=== PATIENT | female | born 1950 | race Caucasian/White ===

== ENCOUNTER 2019-03-10 06:44 | Observation (INO) ==
[2019-03-10 07:57] LABS: URINE SOURCE CLEAN CATCH
[2019-03-10 07:59] LABS: BASO# 0.05 X1000 (0.0-0.2); BASO% 0.5 % (0.0-0.8); EOS# 0.52 X1000 (0.0-0.7); IMM GRAN# 0.03 X1000 (0.0-0.04); IMM GRAN% 0.3 % (0.0-0.5); LYMPH# 2.32 X1000 (1.2-3.4); LYMPH% 22.5 % (20.5-51.1); MCH 29.8 PG (27-31); MCHC 30.6 g/dL (33-37); MCV 97.6 FL (81-99); MONO# 0.95 X1000 (0.11-0.59); MONO% 9.2 % (1.7-9.3); MPV 10.6 FL (7.4-10.4); NEUT# 6.46 X1000 (1.4-6.5); NEUT% 62.5 % (42.2-75.2); PLT 312 X1000 (130-400); RBC 3.69 XMIL (4.2-5.4); RDW 13.3 % (11.5-14.5); WBC 10.33 X1000 (4.8-10.8)
[2019-03-10 08:01] LABS: BILIRUBIN URINE NEGATIVE (NEGATIVE); BLOOD URINE NEGATIVE (NEGATIVE); COLOR YELLOW; GLUCOSE URINE NEGATIVE (NEGATIVE); KETONE URINE NEGATIVE (NEGATIVE); LEUKOCYTES URINE LARGE (NEGATIVE); NITRITE URINE NEGATIVE (NEGATIVE); PH URINE 5.5; PROTEIN URINE NEGATIVE (NEGATIVE); SP GRAVITY URINE 1.025; TURBIDITY URINE CLEAR (CLEAR); UROBILINOGEN URINE 2 mg/dL (NORMAL)
[2019-03-10 08:02] LABS: UR EPITHELIAL CELLS <10 /HPF (<10); URINE BACTERIA NEGATIVE /HPF; URINE RBC <10 /HPF (<10); URINE WBC 20-40 /HPF (<10)
[2019-03-10 08:12] LABS: INR 0.88; PROTIME 12.4 Seconds (11.0-16.0); PTT 27.5 Seconds (22.3-41.8)
--- NOTE | 2019-03-10 08:16 | EKG Report ---
Test Performed on : 03/10/2019 07:00:14 AM Test Reason : chest pain Blood Pressure : / mmHG Vent. Rate : 077 BPM Atrial Rate : 064 BPM P-R Int : 166 ms QRS Dur : 090 ms QT Int : 490 ms P-R-T Axes : 102 039 032 degrees QTc Int : 554 ms Sinus rhythm. with occasional and consecutive premature ventricular complexes. and premature atrial c omplexes. Prolonged QT Abnormal ECG No previous ECGs available Unconfirmed Result
[2019-03-10 08:29] LABS: ALBUMIN 4.1 g/dL (3.5-5.0); CALCIUM 8.4 mg/dL (8.8-10.2); CREATININE 1.1 mg/dL (0.5-0.9); POTASSIUM 3.8 mmol/L (3.5-5.1); TOTAL BILIRUBIN 0.5 mg/dL (0.20-1.00); TOTAL PROTEIN 7.2 g/dL (6.3-8.3)
--- NOTE | 2019-03-10 09:08 | Diag Imaging Result Doc PS360 ---
EXAM: CHEST-1 VIEW HISTORY: chest pain TECHNIQUE: Single view COMPARISON: None. FINDINGS: The lungs are well expanded. The heart is not enlarged. The vessels are not distended. There are no infiltrates. No effusion identified. IMPRESSION: Negative exam. Electronically signed by Vince Hodges 03/10/2019 9:06 AM
--- NOTE | 2019-03-10 09:18 | PROVIDER DOCUMENTATION ---
HPI-Chest Pain - General Chief Complaint: Chest Pain Stated Complaint: CHEST PAIN Time Seen by Provider: 03/10/19 07:14 Source: patient Allergies/Adverse Reactions: Patient Allergies Allergy/AdvReac Type Severity Reaction Status Date / Time No Known Allergies Allergy Verified 03/10/19 07:28 Home Medications: Home Medication List Medication Instructions Recorded Confirmed Last Taken Type Aspirin [Aspir-Low] 81 mg PO DAILY 03/10/19 03/10/19 Unknown History Bisoprolol/Hctz [Ziac 10/6.25 mg] 1 tab PO DAILY 03/10/19 03/10/19 Unknown History Calcium Carb/Vitamin D3/Vit K1 1 tab PO DAILY 03/10/19 03/10/19 Unknown History [Citracal Soft Chew] Clonazepam 2 cap PO BID 03/10/19 03/10/19 Unknown History Cyanocobalamin (Vitamin B-12) 1 tab PO DAILY 03/10/19 03/10/19 Unknown History [Vitamin B12] Diphenhydramine [Benadryl] 25 mg PO HS 03/10/19 03/10/19 Unknown History Escitalopram [Lexapro] 10 mg PO DAILY 03/10/19 03/10/19 Unknown History Estrogens, Conjugated [Premarin] 0.3 mg PO DAILY 03/10/19 03/10/19 Unknown History Fluticasone 50 Mcg Nasal [place] 2 squirt INTRANASAL DAILY 03/10/19 03/10/19 Unknown History [Flonase] Loratadine [Claritin] 10 mg PO DAILY 03/10/19 03/10/19 Unknown History Losartan/Hydrochlorothiazide 1 tab .ROUTE DAILY 03/10/19 03/10/19 Unknown History [Losartan-Hctz 50-12.5 mg Tab] Multivitamins/Minerals [Centrum 1 tab PO DAILY 03/10/19 03/10/19 Unknown History Silver] Naproxen 500 mg PO BID 03/10/19 03/10/19 Unknown History Nifedipine [Nifedipine ER] 30 mg PO BID 03/10/19 03/10/19 Unknown History Omeprazole 40 mg PO DAILY 03/10/19 03/10/19 Unknown History Tizanidine [Zanaflex] 4 mg PO HS 03/10/19 03/10/19 Unknown History - History of Present Illness-CP Nature of Presenting Problem: 68 y/o WF c/o chest pain that woke her up at 5am today saying it radiates across her chest from rt to Lt and into her Lt arm. She admits some SOB but no N/V. Location: reports: central (across chest) Chest Pain Radiation: reports: shoulders (lt shoulder) Quality of Pain: reports: aching Severity in ED: mild Onset/Duration: 4-6 hours ago Context/Activities at Onset: reports: sleep Modifying Factors: improves with: nothing Associated Symptoms: reports: nausea, shortness of breath Nitro Today/Relief: no nitro taken today Aspirin Treatment Today: 325 mg x 1, provided at home Prior Chest Pain/Cardiac Workup: reports: no prior chest pain, no prior cardiac workup Similar Symptoms Previously?: No Recently Seen Here or By Another Healthcare Provider: No Review of Systems - Adult - REVIEW OF SYSTEMS - ADULT Constitutional: reports: no symptoms reported, see HPI Eyes: reports: no symptoms reported, see HPI Ears, Nose, Mouth & Throat: reports: no symptoms reported, see HPI Cardiovascular: reports: see HPI, chest pain Respiratory: reports: see HPI, shortness of breath Gastrointestinal: reports: no symptoms reported, see HPI Genitourinary: reports: no symptoms reported, see HPI Musculoskeletal: reports: no symptoms reported, see HPI Integumentary: reports: no symptoms reported, see HPI Neurological: reports: no symptoms reported, see HPI Psychiatric: reports: no symptoms reported, see HPI Endocrine: reports: no symptoms reported, see HPI Hematologic/Lymphatic: reports: no symptoms reported, see HPI Allergic/Immunologic: reports: no symptoms reported, see HPI All Other Systems: Reviewed and Negative Past History - Adult - PAST MEDICAL HISTORY-ADULT Review of Records: reports: Nursing Assessment Review, Medications Reviewed, Social history reviewed & non-contributory. Physical Exam-General - PHYSICAL EXAM-ADULT Initial Vital Signs Reviewed: Yes - CONSTITUTIONAL General Appearance: appears well, alert, no apparent distress - EYES Eyes: PERRL/EOMI - HEAD, EARS, NOSE, MOUTH & THROAT HENMT: normocephalic/atraumatic, moist mucous membranes - NECK Neck: non-tender, full range of motion, supple, normal inspection - RESPIRATORY Respiratory: chest non-tender, lungs clear, normal breath sounds, no pleuratic chest pain, no respiratory distress, no accessory muscle use - CARDIOVASCULAR Cardiovascular: normal peripheral pulses, regular rate, rhythm, no edema, no gallop, no JVD, no murmur - GASTROINTESTINAL (ABDOMEN) Abdominal Exam: normal bowel sounds, non tender, soft, no organomegaly, no pulsatile mass - LYMPHATIC Lymphatic: no adenopathy - MUSCULOSKELETAL Back Exam: normal inspection, no CVA tenderness, no vertebral tenderness Extremity: normal range of motion, non-tender, normal gait, normal inspection, no pedal edema, no calf tenderness, normal capillary refill - SKIN Integumentary: normal color, normal turgor - NEUROLOGIC 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: 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-XII nml as tested, grossly normal, no motor/sensory deficits - PSYCHIATRIC Psych/Mental Status: normal mood/affect, normal thought content, normal thought process, oriented x 3 - HEART Score HEART Score: History: Moderately Suspicious HEART Score: ECG: Non-Specific Repolarization Disturbance/LBBB/PM HEART Score: Age: > or = 65 Years HEART Score: Risk Factors for Atherosclerotic Disease: 1 or 2 Risk Factors HEART Score: Troponin: < or = Normal Limit Total HEART Score:: 5 Progress - PLAN OF CARE/RESULTS Progress/Plan/Lab Results: Vital Signs - 8 hr 03/10/19 06:48 Temperature 97.8 F Pulse Rate 59 L Respiratory Rate 20 Blood Pressure 168/70 O2 Sat by Pulse Oximetry 97 Laboratory Results - last 24 hr 03/10/19 03/10/19 03/10/19 07:40 07:45 07:45 WBC 10.33 RBC 3.69 L Hgb 11.0 L Hct 36.0 L MCV 97.6 MCH 29.8 MCHC 30.6 L RDW Std Deviation 13.3 Plt Count 312 MPV 10.6 H Immature Gran % (Auto) 0.3 Neut % (Auto) 62.5 Lymph % (Auto) 22.5 [place] % (Auto) 9.2 Eos % (Auto) 5.0 Baso % (Auto) 0.5 Immature Gran # (Auto) 0.03 Neut # (Auto) 6.46 Lymph # (Auto) 2.32 [place] # (Auto) 0.95 H Eos # (Auto) 0.52 Baso # (Auto) 0.05 PT INR PTT (Actin FS) Sodium Potassium Chloride Carbon Dioxide Anion Gap BUN Creatinine Estimated GFR/1.73 m2 BUN/Creatinine Ratio Glucose Calculated Osmolality Calcium Total Bilirubin AST ALT Alkaline Phosphatase Troponin T < 0.010 Ajf-W-Xtyjeayfkah Pept Total Protein Albumin Globulin Albumin/Globulin Ratio Urine Source CLEAN CATCH Urine Color YELLOW Urine Turbidity CLEAR Urine pH 5.5 Ur Specific [place] 1.025 Urine Protein NEGATIVE Ur Glucose (Stick) NEGATIVE Ur Ketones (Stick) NEGATIVE Urine Blood NEGATIVE Urine Nitrite NEGATIVE Urine Bilirubin NEGATIVE Urobilinogen Dipstick 2 A Urine Leukocytes LARGE A Urine WBC (Auto) 20-40 A Urine RBC (Auto) <10 U Epithel Cells (Auto) <10 Urine Bacteria (Auto) NEGATIVE 03/10/19 03/10/19 03/10/19 07:45 07:45 07:45 WBC RBC Hgb Hct MCV MCH MCHC RDW Std Deviation Plt Count MPV Immature Gran % (Auto) Neut % (Auto) Lymph % (Auto) [place] % (Auto) Eos % (Auto) Baso % (Auto) Immature Gran # (Auto) Neut # (Auto) Lymph # (Auto) [place] # (Auto) Eos # (Auto) Baso # (Auto) PT 12.4 INR 0.88 PTT (Actin FS) 27.5 Sodium 143 Potassium 3.8 Chloride 104 Carbon Dioxide 24 L Anion Gap 15 BUN 32 H Creatinine 1.1 H Estimated GFR/1.73 m2 49 BUN/Creatinine Ratio 29 Glucose 115 H Calculated Osmolality 293 Calcium 8.4 L Total Bilirubin 0.50 AST 19 ALT 11 Alkaline Phosphatase 103 Troponin T Fra-M-Eyemfsozyde Pept 954 H Total Protein 7.2 Albumin 4.1 Globulin 3.0 Albumin/Globulin Ratio 1.0 Urine Source Urine Color Urine Turbidity Urine pH Ur Specific [place] Urine Protein Ur Glucose (Stick) Ur Ketones (Stick) Urine Blood Urine Nitrite Urine Bilirubin Urobilinogen Dipstick Urine Leukocytes Urine WBC (Auto) Urine RBC (Auto) U Epithel Cells (Auto) Urine Bacteria (Auto) Orders Category Date Time Status Nursing- Obtain EKG ONCE Care 03/10/19 07:14 Active CHEST-1 VIEW [RAD] Stat Exams 03/10/19 07:14 Completed CBC WITH ELECTRONIC DIFF [HEME] Stat Lab 03/10/19 07:45 Completed COMPREHENSIVE METABOLIC PANEL [CHEM] Stat Lab 03/10/19 07:45 Completed PRO B-NATRIURETIC PEPTIDE Stat Lab 03/10/19 07:45 Completed PROTIME WITH INR [COAG] Stat Lab 03/10/19 07:45 Completed PTT [COAG] Stat Lab 03/10/19 07:45 Completed TROPONIN T Stat Lab 03/10/19 07:45 Completed URINALYSIS W/POSS RFLX CULT [URINALYSIS] Stat Lab 03/10/19 07:40 Completed URINE CULTURE [RM] Routine Lab 03/10/19 08:32 Ordered Morphine Med 03/10/19 09:31 Once 2 mg IV NOW ONE Ondansetron [Zofran] Med 03/10/19 09:31 Once 4 mg IV NOW ONE EKG [EKG] Stat Ther 03/10/19 07:14 Draft Result Diagrams: 03/10/19 07:45 03/10/19 07:45 - EKG 1 Time of EKG reading by physician:: 07:00 EKG Read and Signed by:: Clifford Sorto EKG Interpretation (*Must complete 3 of following elements*): Abnormal Rate: 77 Rhythm: SR with PVC and PAC [place]: normal QRS: normal [place] Interval: normal ST Wave: normal - XRAY 1 XRAY Study: Chest Impression: Normal, See EMR Report ([facility] - [address] [place] [address] [place], [place] [id number] [facility] - [address] [place] [address] Department of Imaging Patient: DANGELO LONGO Date: 03/10/19#: [id number] : 1950DM Status: REG ERAcct#: [id number] Age/Sex: 68/FRoom/Bed: Loc: P.ED Ordering Physician: Clifford Sorto MD Family Physician: Leodan Kahn MD Reason for Procedure: chest pain Signed EXAM: CHEST-1 VIEW HISTORY: chest pain TECHNIQUE: Single view COMPARISON: None. FINDINGS: The lungs are well expanded. The heart is not enlarged. The vessels are not distended. There are no infiltrates. No effusion identified. IMPRESSION: Negative exam. Electronically signed by Vince Hodges 03/10/2019 9:06 AM 03/10/19905 Interpreting Physician: Vince Hodges MD Dictated Date/Time: 03/10/19905 cc: Clifford Sorto MD; Leodan Kahn MD) - CONSULTS/PCP/HOSPITALIST Notification #1 *Consult/PCP/Hospitalist*: Dr Steen Time Discussed: 09:32 Consult Disposition: Will see in ED, Admit Departure - Departure Date of Disposition Decision: 03/10/19 Time of Disposition Decision: 09:17 DIAGNOSIS: Renal insufficiency, Chest pain, CHF (congestive heart failure) Disposition: ADMITTED INPATIENT 09 Certified Medical Emergency: Emergent Condition: Fair Referrals and Follow-Ups: Leodan Kanh MD [Primary Care Provider] - - Critical Care Note This patient required my direct & personal management of CC.: No Attestation - Physician/ SYLVIA Attestation Patient care was provided by Advanced Practice Provider:: No The physician spent face to face time with patient:: Yes Advanced Practice Provider documentation review:: Supervising physician onsite and consulted in the evaluation and care of this patient. The physician did have a face to face encounter with the patient.
[2019-03-10] MEDS ORDERED: MORPHINE IV ONE (09:31)
[2019-03-10] MEDS ORDERED: ZOFRAN IV ONE (09:31)
[2019-03-10] MEDS ORDERED: CENTRUM SILVER PO SCH (10:45)
[2019-03-10] MEDS ORDERED: PREMARIN PO SCH (10:45)
[2019-03-10] MEDS ORDERED: ASPIRIN EC PO SCH (10:45)
[2019-03-10] MEDS ORDERED: THERA M PLUS PO SCH (10:58)
[2019-03-10] MEDS: CALTRATE 600 + D PO SCH (11:27)
[2019-03-10] MEDS: LEXAPRO PO SCH (11:28)
[2019-03-10] MEDS: VITAMIN B-12 PO SCH (11:29)
[2019-03-10] MEDS: ADALAT CC PO SCH ×2 (11:56→21:21)
[2019-03-10] MEDS: PRILOSEC PO SCH (11:57)
[2019-03-10] MEDS: COZAAR PO SCH (11:57)
[2019-03-10] MEDS: CLARITIN PO SCH (11:57)
[2019-03-10] MEDS: NAPROSYN PO SCH ×2 (11:58→21:21)
[2019-03-10] MEDS: HYDROCHLOROTHIAZIDE PO SCH (11:58)
[2019-03-10] MEDS: FLONASE NAS SCH (11:58)
[2019-03-10] MEDS ORDERED: TYLENOL PO PRN (12:31)
[2019-03-10] MEDS ORDERED: ZOFRAN IV PRN (12:31)
--- NOTE | 2019-03-10 12:56 | EKG Report ---
Test Performed on : 03/10/2019 12:50:39 PM Test Reason : CP Blood Pressure : / mmHG Vent. Rate : 054 BPM Atrial Rate : 054 BPM P-R Int : 230 ms QRS Dur : 084 ms QT Int : 488 ms P-R-T Axes : 063 057 052 degrees QTc Int : 462 ms Sinus bradycardia. with 1st degree AV block. Low voltage QRS Borderline ECG When compared with ECG of 10-MAR-2019 07:00, (Unconfirmed) premature ventricular complexes. are no longer present premature atrial complexes. are no longer present ID interval has increased QT has shortened Confirmed by Rl Ruby MD ([id number]) on 03/12/2019 7:30:13 AM
[2019-03-10] MEDS ORDERED: LOVENOX SUBQ SCH (13:00)
[2019-03-10 13:46] LABS: AGAP 13; BUN 30 mg/dL (8-22); CALCIUM 8.3 mg/dL (8.8-10.2); CHLORIDE 104 mmol/L (98-107); CK PROFILE 102 U/L (24-173); COSMO 287; CREATININE 0.9 mg/dL (0.5-0.9); ESTIMATED GFR > 60; GLUCOSE 97 mg/dL (70-104); POTASSIUM 4.1 mmol/L (3.5-5.1); SODIUM 141 mmol/L (136-145); TCO2 25 mmol/L (25-35)
[2019-03-10] MEDS ORDERED: PNEUMOVAX 23 IM ONE (15:45)
[2019-03-10 19:12] LABS: URINE SOURCE CLEAN CATCH
[2019-03-10 19:15] LABS: BILIRUBIN URINE NEGATIVE (NEGATIVE); BLOOD URINE NEGATIVE (NEGATIVE); COLOR YELLOW; GLUCOSE URINE NEGATIVE (NEGATIVE); KETONE URINE NEGATIVE (NEGATIVE); LEUKOCYTES URINE LARGE (NEGATIVE); NITRITE URINE NEGATIVE (NEGATIVE); PH URINE 5.5; PROTEIN URINE TRACE mg/dL (NEGATIVE); SP GRAVITY URINE 1.023; TURBIDITY URINE CLEAR (CLEAR); UROBILINOGEN URINE 2 mg/dL (NORMAL)
[2019-03-10 19:16] LABS: UR EPITHELIAL CELLS <10 /HPF (<10); URINE BACTERIA 1+ /HPF; URINE RBC <10 /HPF (<10); URINE WBC 20-40 /HPF (<10)
--- NOTE | 2019-03-10 20:23 | HISTORY AND PHYSICAL ---
PRIMARY CARE PHYSICIAN: Dr. Leodan Kahn. CHIEF COMPLAINT: Chest pain. HISTORY OF PRESENTING ILLNESS: This is a 68-year-old, female, who presents to [facility], after she was awakened around 5 a.m. with substernal chest pain. Initially, it went on to the right side of her chest, but then went across to the left side, and radiated through to her shoulder blades and down her left arm. Denied any shortness of breath, nausea, diaphoresis. Her heart score was 5. Workup showed first set of cardiac enzymes were negative. EKG showed sinus rhythm with occasional and consecutive PVCs and premature atrial complexes at 77, but she states that she had a stress test several years ago that was negative, but none since then. So, she will be admitted for further evaluation and treatment. PAST MEDICAL HISTORY: GERD, hypertension, obstructive sleep apnea and wears a CPAP, and arthritis. PAST SURGICAL HISTORY: Cholecystectomy, hysterectomy, and gastric bypass. FAMILY HISTORY: Reviewed and noncontributory. SOCIAL HISTORY: She currently lives with family. Denies any tobacco, alcohol, or illicit drug use. ALLERGIES: She has no known drug allergies. HOME MEDICATIONS: She takes losartan/hydrochlorothiazide 50/12.5 one p.o. daily. We will hold her bisoprolol/hydrochlorothiazide 10/6.25 one p.o. daily. Continue the following: Aspirin 81 mg p.o. daily, Citracal Soft Chew 1 tablet p.o. daily, clonazepam 1 mg 2 capsules p.o. b.i.d., vitamin B12, 2500 mcg 1 p.o. daily, Benadryl 25 mg p.o. at bedtime, Lexapro 10 mg p.o. daily, Premarin 0.3 mg p.o. daily, Flonase 2 sprays nasally daily, Claritin 10 mg p.o. daily, multivitamin p.o. daily, naproxen 500 mg p.o. b.i.d., nifedipine 30 mg p.o. b.i.d., omeprazole 40 mg p.o. daily, and Zanaflex 4 mg p.o. at bedtime. LABORATORY AND DIAGNOSTIC DATA: White blood cell count of 10.33, hemoglobin 11, hematocrit 36, platelets 312,000. PT and INR of 12.4 and 0.88. Sodium 143, potassium 3.8, chloride 104, CO2 of 24, BUN of 32, creatinine 1.1, glucose 115. Cardiac enzyme was negative. ProBNP of 954. Urinalysis with negative nitrites, large leukocytes, but negative bacteria. Chest x-ray showed a negative exam. EKG showed sinus rhythm with occasional and consecutive PVCs and PACs at 77. REVIEW OF SYSTEMS: She denied any fever, chills, blurred vision, dizziness. She was positive for chest pain that radiated through to her shoulder blade, down to her left arm, and up in the left side of her neck. Denied any shortness of breath, cough, abdominal pain, nausea, vomiting, constipation, diarrhea, burning or hurting with urination. PHYSICAL EXAMINATION: VITAL SIGNS: On arrival, she had a temperature of 97.8 degrees, pulse 59, respirations 20, blood pressure 168/70, saturating 97% on room air. Heart rate did go down about 2 hours after arriving to 54. GENERAL: This is a 68-year-old, female, who is lying in the bed and answers questions appropriately. HEENT: Normocephalic, atraumatic. Normal ENT inspection. Oropharynx and nares are clear. EYES: Pupils are equal, round, reactive to light and accommodation. Extraocular movements are intact. NECK: Normal inspection. Normal range of motion. LUNGS: Clear to auscultation bilaterally with equal lung expansion and chest wall movement. HEART: Regular rate and rhythm. No murmurs, rubs, or gallops. ABDOMEN: Soft, nontender, nondistended. Bowel sounds are present x4 quadrants. MUSCULOSKELETAL: She has 5/5 strength x4 extremities. NEUROLOGICAL: Cranial nerves 2-12 appear grossly intact. ASSESSMENT: 1. Chest pain. 2. Bradycardia. 3. Hypertension, history of. 4. Gastroesophageal reflux disease. PLAN: She will be admitted to the medical unit, placed on telemetry, O2 per protocol. Will place her on a healthy heart diet now, NPO after midnight for a myocardial perfusion scan in the a.m. We will complete her serial cardiac enzymes q.8 x3. We will check a lipid profile in the a.m. We will continue her home medications as previously identified. We will do Lovenox 40 mg subcutaneous q.24 for DVT prophylaxis. Urine culture is pending. We will recheck CBC and BMP in the a.m. Further orders after seen by attending. Dictated by GARETH Vigil for Lucian Steen MD cc: GARETH Vigil MD Rodney W. Harney, MD
[2019-03-10] MEDS ORDERED: BENADRYL PO SCH (21:00)
[2019-03-10] MEDS ORDERED: ZANAFLEX PO SCH (21:00)
[2019-03-10 21:07] LABS: CK INDEX 4.4 (0.0-2.5); CK-MB 8.12 ng/mL (0.0-5.0)
[2019-03-10] MEDS: KLONOPIN PO SCH (21:21)
[2019-03-11 07:04] LABS: BASO# 0.04 X1000 (0.0-0.2); BASO% 0.5 % (0.0-0.8); EOS# 0.45 X1000 (0.0-0.7); EOS% 5.8 % (0.0-10.0); HEMATOCRIT 32.1 % (37.0-47.0); HEMOGLOBIN 9.6 g/dL (12.0-16.0); IMM GRAN# 0.01 X1000 (0.0-0.04); IMM GRAN% 0.1 % (0.0-0.5); LYMPH# 1.92 X1000 (1.2-3.4); LYMPH% 24.6 % (20.5-51.1); MCH 29.5 PG (27-31); MCHC 29.9 g/dL (33-37); MCV 98.8 FL (81-99); MONO# 0.66 X1000 (0.11-0.59); MONO% 8.5 % (1.7-9.3); NEUT# 4.71 X1000 (1.4-6.5); NEUT% 60.5 % (42.2-75.2); PLT 270 X1000 (130-400); RBC 3.25 XMIL (4.2-5.4); RDW 13.2 % (11.5-14.5); WBC 7.79 X1000 (4.8-10.8)
[2019-03-11] MEDS: PRILOSEC PO SCH (07:29)
[2019-03-11 07:33] LABS: CK-MB 7.85 ng/mL (0.0-5.0)
[2019-03-11] MEDS ORDERED: ASPIRIN PO ONE (07:43)
[2019-03-11] MEDS ORDERED: LOVENOX 1 MG/KG SUBQ ONE (07:43)
[2019-03-11] MEDS ORDERED: LOVENOX SUBQ ONE (08:15)
--- NOTE | 2019-03-11 08:32 | EKG Report ---
Test Performed on : 03/11/2019 08:25:45 AM Test Reason : ELEV TROPONIN Blood Pressure : / mmHG Vent. Rate : 058 BPM Atrial Rate : 058 BPM P-R Int : 214 ms QRS Dur : 086 ms QT Int : 478 ms P-R-T Axes : 039 038 035 degrees QTc Int : 469 ms Sinus bradycardia. with 1st degree AV block. Low voltage QRS Borderline ECG When compared with ECG of 10-MAR-2019 12:50, (Unconfirmed) No significant change was found Confirmed by Rl Ruby MD ([id number]) on 03/12/2019 7:29:56 AM
[2019-03-11] MEDS: LEXAPRO PO SCH (10:36)
[2019-03-11] MEDS: KLONOPIN PO SCH (10:36)
[2019-03-11] MEDS: VITAMIN B-12 PO SCH (10:37)
[2019-03-11] MEDS: ADALAT CC PO SCH (10:37)
[2019-03-11] MEDS: HYDROCHLOROTHIAZIDE PO SCH (10:37)
[2019-03-11] MEDS: CALTRATE 600 + D PO SCH (10:38)
[2019-03-11] MEDS: FLONASE NAS SCH (10:38)
[2019-03-11] MEDS: CLARITIN PO SCH (10:38)
[2019-03-11] MEDS: COZAAR PO SCH (10:38)
[2019-03-11 11:26] VITALS: BP 155/67
[2019-03-11] MEDS ORDERED: LOVENOX SUBQ SCH (20:00)
[2019-03-11] MEDS ORDERED: LIPITOR PO SCH (21:00)
[2019-03-12] MEDS ORDERED: ASPIRIN EC PO SCH (09:00)
--- NOTE | 2019-03-18 23:58 | DISCHARGE SUMMARY ---
ADMISSION DATE: 03/10/2019 DISCHARGE DATE: 03/11/2019 DISCHARGE DIAGNOSES: Acute myocardial infarction. PROCEDURES: None. BRIEF HOSPITAL COURSE: The patient is a 68-year-old female who was admitted to the hospital and discharged by Dr. Steen. She was not seen, nor examined by myself. She apparently was admitted with chest pain, ruled in for an acute IN and was transferred to [place]. Further discharge planning per [place] after her heart catheterization. cc: Sridhar Garcia MD
== END 2019-03-11 13:25 | disposition short-term general hospital (02) ==
LOC: P.ED 06:44 → P.MEDSURG 06:44 → SUATTDRO 11:57
PROVIDERS: ATTEND Family Medicine

== ENCOUNTER 2019-06-09 11:31 | Observation (INO) ==
[2019-06-09 12:01] LABS: BASO# 0.04 X1000 (0.0-0.2); BASO% 0.4 % (0.0-0.8); EOS# 0.29 X1000 (0.0-0.7); EOS% 2.9 % (0.0-10.0); HEMOGLOBIN 10.3 g/dL (12.0-16.0); IMM GRAN# 0.02 X1000 (0.0-0.04); IMM GRAN% 0.2 % (0.0-0.5); LYMPH# 1.45 X1000 (1.2-3.4); LYMPH% 14.5 % (20.5-51.1); MCH 30.1 PG (27-31); MCHC 31.2 g/dL (33-37); MCV 96.5 FL (81-99); MONO# 0.52 X1000 (0.11-0.59); MONO% 5.2 % (1.7-9.3); MPV 10.6 FL (7.4-10.4); NEUT% 76.8 % (42.2-75.2); PLT 371 X1000 (130-400); RBC 3.42 XMIL (4.2-5.4); RDW 12.9 % (11.5-14.5); WBC 10.02 X1000 (4.8-10.8)
--- NOTE | 2019-06-09 12:06 | Diag Imaging Result Doc PS360 ---
EXAM: CHEST-2 VIEWS 06/09/2019 HISTORY: cp TECHNIQUE: PA and lateral chest COMMENT: There is no evidence of acute cardiac or pulmonary disease. Compared to 03/10/2019 there has been no significant change. IMPRESSION: No evidence of acute disease. Electronically signed by Norberto Matthew 06/09/2019 12:04 PM
[2019-06-09 12:20] LABS: INR 0.85
[2019-06-09 12:36] LABS: AGAP 13; ALBUMIN 3.8 g/dL (3.5-5.0); ALKALINE PHOSPHATASE 97 U/L (32-104); BUN 27 mg/dL (8-22); CALCIUM 8.9 mg/dL (8.8-10.2); CHLORIDE 101 mmol/L (98-107); CK PROFILE 96 U/L (24-173); COSMO 288; CREATININE 0.9 mg/dL (0.5-0.9); ESTIMATED GFR > 60; GLUCOSE 133 mg/dL (70-104); GOT 21 U/L (10-30); GPT 13 U/L (10-36); POTASSIUM 3.9 mmol/L (3.5-5.1); SODIUM 141 mmol/L (136-145); TCO2 27 mmol/L (25-35); TOTAL PROTEIN 6.6 g/dL (6.3-8.3)
[2019-06-09 13:01] LABS: PTT < 20.0 Seconds (22.3-41.8)
--- NOTE | 2019-06-09 13:30 | EKG Report ---
Test Performed on : 06/09/2019 11:38:23 AM Test Reason : cp Blood Pressure : / mmHG Vent. Rate : 051 BPM Atrial Rate : 051 BPM P-R Int : 212 ms QRS Dur : 086 ms QT Int : 492 ms P-R-T Axes : 023 008 032 degrees QTc Int : 453 ms Sinus bradycardia. with sinus arrhythmia. with 1st degree AV block. Low voltage QRS Borderline ECG When compared with ECG of 11-MAR-2019 08:25, No significant change was found Unconfirmed Result
--- NOTE | 2019-06-09 13:46 | PROVIDER DOCUMENTATION ---
This chart was entered by Renuka Momin Scribe, acting as scribe for Clifford Sorto MD. HPI-Chest Pain - General Chief Complaint: Chest Pain Stated Complaint: CHEST PAIN Time Seen by Provider: 06/09/19 11:53 Source: patient, family () Allergies/Adverse Reactions: Patient Allergies Allergy/AdvReac Type Severity Reaction Status Date / Time No Known Allergies Allergy Verified 06/09/19 11:38 Home Medications: Home Medication List Medication Instructions Recorded Confirmed Last Taken Type Aspirin [Aspir-Low] 81 mg PO DAILY 03/10/19 06/09/19 Unknown History Escitalopram [Lexapro] 10 mg PO DAILY 03/10/19 06/09/19 Unknown History Naproxen 500 mg PO BID 03/10/19 06/09/19 Unknown History Omeprazole 40 mg PO QAM 03/10/19 06/09/19 Unknown History Tizanidine [Zanaflex] 4 mg PO HS 03/10/19 06/09/19 Unknown History ATORVAstatin [Lipitor] 40 mg PO QHS 04/19/19 06/09/19 Unknown History Amlodipine Besylate 5 mg PO QAM 04/19/19 06/09/19 Unknown History Calcium Phosphate Trib/Vit D3 1 ea PO BID 04/19/19 06/09/19 Unknown History [Caltrate Gummy Bites] Carvedilol [Coreg] 3.125 mg PO BID 04/19/19 06/09/19 Unknown History Clonazepam 2 mg PO HS 04/19/19 06/09/19 Unknown History Clopidogrel Bisulfate [Plavix] 75 mg PO QAM 04/19/19 06/09/19 Unknown History Cyanocobalamin/Cobamamide [B-12 1 ea SUBLINGUAL QAM 04/19/19 06/09/19 Unknown History 5,000 Mcg Sublingual Tab] Diphenhydramine [Benadryl] 25 mg PO QHS 04/19/19 06/09/19 Unknown History Estrogens, Conjugated [Premarin] 0.3 mg PO HS 04/19/19 06/09/19 Unknown History Losartan/Hydrochlorothiazide 1 ea PO QAM 04/19/19 06/09/19 Unknown History [Hyzaar 100-25 Tablet] Mirabegron E.r. [Myrbetriq E.r] 50 mg PO HS 04/19/19 06/09/19 Unknown History Nitroglycerin Sl [Nitroglycerin] 0.4 mg SUBLINGUAL PRN PRN 04/19/19 06/09/19 Unknown History - History of Present Illness-CP Nature of Presenting Problem: 68 yowf presents to the ed with c/o chest pain, dizziness, nausea and sob. pt sts she noted pain last night and took Nitro x1 and eased pain and she went to sleep. pt sts woke this am pain was back with other sx. pt took another Nitro and ASA 325mg and pain has eased again.. pt on exam is nontoxic in appearance and is in no obvious distress on exam Location: reports: central Chest Pain Radiation: reports: no radiation Quality of Pain: reports: burning Severity in ED: moderate Onset/Duration: last night Timing: still present, improving, intermittent Context/Activities at Onset: reports: light activity Modifying Factors: improves with: other (Nitro) Associated Symptoms: reports: dizziness, nausea, shortness of breath. 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 denies: palpitations, syncope Respiratory: denies: cough, shortness of breath, wheezing Gastrointestinal: reports: nausea. denies: abdominal pain, diarrhea, vomiting Genitourinary: reports: no symptoms reported Musculoskeletal: denies: back pain, neck pain Integumentary: reports: no symptoms reported Neurological: reports: no symptoms reported, dizziness/vertigo. denies: headache/migraines, syncope Psychiatric: reports: no symptoms reported Endocrine: reports: no symptoms reported Hematologic/Lymphatic: reports: no symptoms reported Allergic/Immunologic: reports: no symptoms reported All Other Systems: Reviewed and Negative Past History - Adult - PAST MEDICAL HISTORY-ADULT Review of Records: reports: Old Records Reviewed, Nursing Assessment Review, Medications Reviewed, Social history reviewed & non-contributory. Major Childhood Illnesses: reports: denies history Cardiovascular: reports: HTN, [place] Respiratory: reports: sleep apnea Gastrointestinal: reports: GERD Obstetrical/Gynecological: reports: denies history Genitourinary: reports: denies history Musculoskeletal: reports: denies history Neurological: reports: denies history Endocrine/Immune: reports: denies history Other Conditions: reports: denies history - PRIOR SURGERIES/PROCEDURES Surgical/Procedure History: reports: cholecystectomy, hysterectomy - IMMUNIZATION STATUS Childhood Immunizations: See Nurse Assessment Flu Vaccine: See Nurse Assessment - FAMILY HISTORY Family History: reviewed, not pertinent - SOCIAL HISTORY Smoking: denies Substance Use: denies Living Situation: family Physical Exam-General - PHYSICAL EXAM-ADULT Initial Vital Signs Reviewed: Yes - CONSTITUTIONAL General Appearance: appears well, alert, no apparent distress (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), 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 - EYES Eyes: PERRL/EOMI, pink conjunctivae - HEAD, EARS, NOSE, MOUTH & THROAT HENMT: moist mucous membranes - NECK Neck: non-tender, full range of motion, supple, normal inspection - RESPIRATORY Respiratory: chest non-tender, lungs clear, normal breath sounds - CARDIOVASCULAR Cardiovascular: normal peripheral pulses, regular rate, rhythm - CHEST (BREASTS) Chest/Breast: deferred - GASTROINTESTINAL (ABDOMEN) Abdominal Exam: normal bowel sounds, non tender, soft - GENITOURINARY Female Genitalia/Pelvic Exam: deferred Rectal Exam: deferred Hemoccult Exam: deferred - LYMPHATIC Lymphatic: no adenopathy - MUSCULOSKELETAL Back Exam: no CVA tenderness, no vertebral tenderness Extremity: normal range of motion, non-tender, normal gait, normal inspection - SKIN Integumentary: normal turgor, warm/dry, pallor - NEUROLOGIC Neurologic: grossly normal - PSYCHIATRIC Psych/Mental Status: normal mood/affect, normal thought content, normal thought process, oriented x 3 - HEART Score HEART Score: History: Moderately Suspicious HEART Score: ECG: Non-Specific Repolarization Disturbance/LBBB/PM HEART Score: Age: > or = 65 Years HEART Score: Risk Factors for Atherosclerotic Disease: > or = 3 Risk Factors or History of Atherosclerotic Disease HEART Score: Troponin: 1-3x Normal Limit Total HEART Score:: 7 Progress - PLAN OF CARE/RESULTS Progress/Plan/Lab Results: Vital Signs - 8 hr 06/09/19 11:34 Temperature 97.5 F L Pulse Rate 67 Respiratory Rate 18 Blood Pressure 160/90 O2 Sat by Pulse Oximetry 97 Laboratory Results - last 24 hr 06/09/19 06/09/19 06/09/19 11:45 11:45 11:45 WBC RBC Hgb Hct MCV MCH MCHC RDW Std Deviation Plt Count MPV Immature Gran % (Auto) Neut % (Auto) Lymph % (Auto) Luce % (Auto) Eos % (Auto) Baso % (Auto) Immature Gran # (Auto) Neut # (Auto) Lymph # (Auto) Luce # (Auto) Eos # (Auto) Baso # (Auto) PT INR PTT (Actin FS) Sodium 141 Potassium 3.9 Chloride 101 Carbon Dioxide 27 Anion Gap 13 BUN 27 H Creatinine 0.9 Estimated GFR/1.73 m2 > 60 BUN/Creatinine Ratio 30 Glucose 133 H Calculated Osmolality 288 Calcium 8.9 Total Bilirubin 0.40 AST 21 ALT 13 Alkaline Phosphatase 97 Creatine Kinase 96 Troponin T High Sens 20 H Twd-G-Vxcrnnvhiaa Pept 397 H Total Protein 6.6 Albumin 3.8 Globulin 3.0 Albumin/Globulin Ratio 1.0 06/09/19 06/09/19 11:45 11:45 WBC 10.02 RBC 3.42 L Hgb 10.3 L Hct 33.0 L MCV 96.5 MCH 30.1 MCHC 31.2 L RDW Std Deviation 12.9 Plt Count 371 MPV 10.6 H Immature Gran % (Auto) 0.2 Neut % (Auto) 76.8 H Lymph % (Auto) 14.5 L Luce % (Auto) 5.2 Eos % (Auto) 2.9 Baso % (Auto) 0.4 Immature Gran # (Auto) 0.02 Neut # (Auto) 7.70 H Lymph # (Auto) 1.45 Luce # (Auto) 0.52 Eos # (Auto) 0.29 Baso # (Auto) 0.04 PT 12.0 INR 0.85 PTT (Actin FS) < 20.0 L Sodium Potassium Chloride Carbon Dioxide Anion Gap BUN Creatinine Estimated GFR/1.73 m2 BUN/Creatinine Ratio Glucose Calculated Osmolality Calcium Total Bilirubin AST ALT Alkaline Phosphatase Creatine Kinase Troponin T High Sens Lke-Y-Kqbrluggqpm Pept Total Protein Albumin Globulin Albumin/Globulin Ratio Orders Category Date Time Status Cardiac Monitoring DIRECTED Care 06/09/19 11:39 Active Oxygen Therapy- ED Nursing DIRECTED Care 06/09/19 11:39 Active Saline Loc NOW Care 06/09/19 11:39 Active CHEST-2 VIEWS [RAD] Stat Exams 06/09/19 11:39 Completed CBC WITH ELECTRONIC DIFF [HEME] Stat Lab 06/09/19 11:45 Completed CK PROFILE [SP CHEM] Stat Lab 06/09/19 11:45 Completed COMPREHENSIVE METABOLIC PANEL [CHEM] Stat Lab 06/09/19 11:45 Completed PRO B-NATRIURETIC PEPTIDE Stat Lab 06/09/19 11:45 Completed PROTIME WITH INR [COAG] Stat Lab 06/09/19 11:45 Completed PTT [COAG] Stat Lab 06/09/19 11:45 Completed TROPONIN T HIGH SENSITIVITY Stat Lab 06/09/19 11:45 Completed CP/SOB/Palp >45 yrs of Age Stat Oth 06/09/19 11:39 Ordered EKG [EKG] Stat Ther 06/09/19 11:39 Draft Result Diagrams: 06/09/19 11:45 06/09/19 11:45 - EKG 1 Time of EKG reading by physician:: 11:38 EKG Read and Signed by:: Clifford Sorto EKG Interpretation (*Must complete 3 of following elements*): Normal (borderlin e) Rate: 51 Rhythm: sinus josse w/ sinus arrhythmia w/ 1st degree AV block Hanna: normal QRS: other (low QRS) SC Interval: normal ST Wave: normal - XRAY 1 XRAY: Bilateral XRAY Study: Chest Impression: See EMR Report (EXAM: CHEST-2 VIEWS 06/09/2019 HISTORY: cp TECHNIQUE: PA and lateral chest COMMENT: There is no evidence of acute cardiac or pulmonary disease. Compared to 03/10/2019 there has been no significant change. IMPRESSION: No evidence of acute disease. Electronically signed by Norberto Matthew 06/09/2019 12:04 PM 06/09/19 1204 Interpreting Physician: Norberto Matthew MD Dictated Date/Time: 06/09/19 1204 cc: Clifford Obrien MD; Leodan Kahn MD) - CONSULTS/PCP/HOSPITALIST Notification #1 *Consult/PCP/Hospitalist*: Tamiko Restrepo for Hospitalist Time Discussed: 13:45 Consult Disposition: Will see in ED, Admit Departure - Departure Date of Disposition Decision: 06/09/19 Time of Disposition Decision: 13:45 DIAGNOSIS: Chest pain, Anemia Disposition: ADMITTED INPATIENT 09 Certified Medical Emergency: Emergent Condition: Fair Referrals and Follow-Ups: Leodan Kahn MD [Primary Care Provider] - - Critical Care Note This patient required my direct & personal management of CC.: No Attestation - Physician/ SYLVIA Attestation Patient care was provided by Advanced Practice Provider:: No The physician spent face to face time with patient:: Yes Advanced Practice Provider documentation review:: Supervising physician onsite and consulted in the evaluation and care of this patient. The physician did have a face to face encounter with the patient. This chart was documented by the indicated scribe, (Renuka Momin Scribe) and accurately reflects the services I performed and decisions made by me, Clifford Sorto MD, as attested by the provider's signature.
--- NOTE | 2019-06-09 14:03 | EKG Report ---
Test Performed on : 06/09/2019 1:58:25 PM Test Reason : repeat for chest pain Blood Pressure : / mmHG Vent. Rate : 052 BPM Atrial Rate : 052 BPM P-R Int : 198 ms QRS Dur : 088 ms QT Int : 526 ms P-R-T Axes : 003 019 036 degrees QTc Int : 489 ms Sinus bradycardia. Low voltage QRS Borderline ECG When compared with ECG of 09-JUN-2019 11:38, (Unconfirmed) No significant change was found Unconfirmed Result
[2019-06-09] MEDS ORDERED: ZOFRAN IV PRN (15:31)
--- NOTE | 2019-06-09 18:56 | HISTORY AND PHYSICAL ---
CHIEF COMPLAINT: Chest pain. HISTORY OF PRESENT ILLNESS: This is a 68-year-old female who presented to the emergency room complaining of chest pain, dizziness, nausea, shortness of breath. She stated that last night she had some chest pain. She took a nitroglycerin. It resolved. She went to sleep. This morning, she woke up. The pain recurred. She describes this as a central area pain mostly epigastric to lower sternum. She describes it as a burning type pain. She did have accompanying dizziness, nausea, shortness of breath with this morning's pain. She took a nitroglycerin and pain was not relieved. Therefore, she presented to the emergency room. She states that she had "a small heart attack" in March 2019. She was sent to [facility]. She stated that she underwent a heart catheterization and at that time they decided to treat her medically. PAST MEDICAL HISTORY: Gastroesophageal reflux disease, hypertension, obstructive sleep apnea with CPAP, arthritis. [place] in March 2019. PAST SURGICAL HISTORY: Cholecystectomy, hysterectomy, gastric bypass. SOCIAL HISTORY: She lives with family members. Denies alcohol, tobacco, or illicit drug use. ALLERGIES: No known drug allergies. HOME MEDICATIONS: A list will be obtained by the nursing staff and will review and restart as appropriate. REVIEW OF SYSTEMS: Discussed with patient with pertinent positives stated in the HPI. She denied any syncope, dizziness, any palpitations, a productive cough, fever, chills, any night sweats, any vomiting, diarrhea, constipation, black or bloody vomitus or stools. Any hematuria, dysuria, frequency. Urgency. PHYSICAL EXAMINATION: GENERAL: This is a 68-year-old female who is sitting up in the emergency room in no distress. VITAL SIGNS: Blood pressure is 145/74 with a heart rate of 60, respirations are 20, temperature is 98 degrees oral. Room air saturations 99 to 100 percent. EYES: Pupils are equal, round, react to light. EOMs are intact. Sclerae anicteric. HEENT: Head is normocephalic, atraumatic. Mucous membranes are moist. NECK: Supple with trachea midline. CARDIOVASCULAR: Regular rate and rhythm. S1, S2 appreciated. She denies any calf tenderness. Peripheral pulses are palpable x4 extremities. No murmur is heard. PULMONARY: Breath sounds are clear. No increased work of breathing noted. Chest rises and falls symmetric with respiration. Chest wall is nontender to palpation. GASTROINTESTINAL: Abdomen is soft, nontender, nondistended. Bowel sounds in all 4 quadrants. NEUROLOGIC: She is alert and oriented x3. SKIN: Warm and dry. DIAGNOSTIC DATA: WBC is 10 with hemoglobin 10.3, hematocrit 33 and platelets of 371,000. Sodium 141, potassium 3.9, BUN 27, creatinine 0.9 with a glucose of 133. Troponin T was 20. Followup 18. INR 0.85. Chest x-ray, no evidence of acute disease. EKG sinus josse with a first-degree AV block. ASSESSMENT AND PLAN: 1. Chest pain 2. Chronic anemia. 3. Coronary artery disease with a history of an myocardial infarction in March 2019. She is being treated medically. 4. Gastroesophageal reflux disease. 5. Obstructive defect sleep apnea with CPAP. 6. Bradycardia. PLAN: The patient will be admitted to the medical-surgical floor and placed on telemetry. trend troponin and cardiac profile. identify her home medications and continue as appropriate. EKG , CBC and a BMP in the morning. encourage them to bring her CPAP from home. The plan was discussed with Dr. Garcia. Further treatments pending hospital course. Dictated by GARETH Ureña for Sridhar Garcia MD cc: GARETH Ureña MD E.[facility]. NOBLE HOSPITALMariella
[2019-06-09] MEDS ORDERED: PRILOSEC PO ONE (19:53)
[2019-06-09] MEDS ORDERED: CARAFATE LIQUID PO ONE (19:54)
--- NOTE | 2019-06-10 06:33 | EKG Report ---
Test Performed on : 06/10/2019 06:29:09 AM Test Reason : CP Blood Pressure : / mmHG Vent. Rate : 060 BPM Atrial Rate : 060 BPM P-R Int : 200 ms QRS Dur : 084 ms QT Int : 460 ms P-R-T Axes : 024 011 039 degrees QTc Int : 460 ms Normal sinus rhythm. Normal ECG When compared with ECG of 09-JUN-2019 13:58, (Unconfirmed) No significant change was found Unconfirmed Result
[2019-06-10 06:42] VITALS: BP 137/64
[2019-06-10 07:21] LABS: HEMATOCRIT 32.8 % (37.0-47.0); HEMOGLOBIN 10.1 g/dL (12.0-16.0); MCH 29.5 PG (27-31); MCHC 30.8 g/dL (33-37); MCV 95.9 FL (81-99); MPV 10.8 FL (7.4-10.4); RBC 3.42 XMIL (4.2-5.4); WBC 8.7 X1000 (4.8-10.8)
[2019-06-10 07:33] LABS: AGAP 14; BUN 22 mg/dL (8-22); CALCIUM 8.8 mg/dL (8.8-10.2); CHLORIDE 102 mmol/L (98-107); COSMO 286; CREATININE 0.8 mg/dL (0.5-0.9); ESTIMATED GFR > 60; GLUCOSE 123 mg/dL (70-104); POTASSIUM 3.5 mmol/L (3.5-5.1); SODIUM 141 mmol/L (136-145); TCO2 25 mmol/L (25-35)
--- NOTE | 2019-06-11 13:57 | DISCHARGE SUMMARY ---
ADMISSION DATE: 06/09/2019 DISCHARGE DATE: 06/10/2019 DIAGNOSES: 1. Chest pain, resolved. 2. Chronic anemia. 3. Coronary artery disease with a history of myocardial infarction in March 2019. She is being treated medically. 4. Gastroesophageal reflux disease. 5. Obstructive sleep apnea with CPAP. 6. Bradycardia. DIAGNOSTICS: 1. Chest x-ray revealed no evidence of acute disease. 2. EKG: Sinus bradycardia with sinus arrhythmia at a rate of 51. HOSPITAL COURSE: Ms. Gutiérrez presented to the emergency room complaining of chest pain, dizziness, nausea, shortness of breath that had started the night before. She had some accompanying dizziness and shortness of breath. Symptoms resolved after coming to the hospital. They did not recur. She ruled out by troponins and EKG. Vital signs remained stable. Thankfully she is ready for discharge. DISCHARGE VITAL SIGNS: Blood pressure is 137/64, heart rate of 60, respirations 14, temperature 97.9 degrees with room air saturations 98%. DISCHARGE MEDICATIONS: 1. Norvasc 5 mg p.o. q.a.m. 2. Aspirin 81 mg p.o. daily. 3. Atorvastatin 40 mg p.o. at bedtime. 4. Caltrate gummy bites 1 p.o. b.i.d. 5. Carvedilol 3.125 p.o. b.i.d. 6. Clonazepam 2 mg p.o. at bedtime. 7. Plavix 75 mg p.o. q.a.m. 8. Vitamin B 12 sublingual 5000 mcg 1 q.a.m. 9. Benadryl 25 mg p.o. at bedtime. 10. Lexapro 10 mg p.o. daily. 11. Premarin 0.3 at bedtime. 12. Hyzaar 100/25 one q.a.m. 13. Myrbetriq 50 mg p.o. at bedtime. 14. Naprosyn 500 mg p.o. b.i.d. 15. Omeprazole 40 mg p.o. daily. 16. Carafate 1 g p.o. t.i.d. 17. Zanaflex 4 mg p.o. at bedtime FOLLOWUP: 1. Dr. Kahn, her primary care physician, she needs to call in the morning to schedule an appointment. 2. She has been instructed to call to be seen sooner or return to the emergency room for any recurring chest pain, palpitations, syncope, dizziness, temperature greater than 101, a productive cough, any nausea, vomiting, diarrhea, constipation, black or bloody vomitus or stools, any hematuria, dysuria, frequency, urgency or for any questions or concerns that she may have. 3. She is being discharged home in stable condition with family members. TIME SPENT: This is a greater than 30 minute discharge. Dictated by GARETH Ureña for Sridhar Garcia MD cc: GARETH Ureña MD
--- NOTE | 2019-06-11 17:50 | DISCHARGE SUMMARY ---
ADMISSION DATE: 06/09/2019 DISCHARGE DATE: 06/10/2019 ADDENDUM: Patient seen and examined by myself. Full note dictated and discussed with nurse practitioner. On discharge, patient is awake, alert. Chest pain is completely resolved with the proton pump inhibitor she was given by Dr. Kahn. The patient will be discharged home. She will follow up outpatient with Dr. Kahn. She will continue her chronic home medications. Continue use of her CPAP and will follow. cc: Sridhar Garcia MD
== END 2019-06-10 11:10 | disposition home or self-care (01) ==
LOC: P.ED 11:31 → P.MEDSURG 11:31
PROVIDERS: ATTEND Family Medicine